=== PATIENT | male | born 1990 | race Asian ===

== ENCOUNTER 2018-02-22 12:12 | Emergency (ER) | payer OTHER ==
--- NOTE | 2018-02-22 12:33 | EDPHY ---
H & P Time Seen by Provider: 02/22/18 12:31 HPI/ROS: CHIEF COMPLAINT: Nausea and rectal bleeding HISTORY OF PRESENT ILLNESS: 28-year-old male with a history of gastritis secondary to H pylori here with complaints of nausea but no abdominal pain associated with rectal bleeding for the last week. He has had no fever, vomiting, diarrhea. The without any denies any abdominal pain. He was treated with medication for H pylori 2 years ago in has not had any medications since. Denies any dark tarry stools. No history of GI bleed. He is not taking any NSAIDs. No history of hemorrhoids. He is not constipated. No history of Crohn 's or ulcerative colitis. REVIEW OF SYSTEMS: Constitutional: No fever, no chills. Eyes: No discharge. ENT: No sore throat. Cardiovascular: No chest pain, no palpitations. Respiratory: No cough, no shortness of breath. Gastrointestinal: No abdominal pain, no vomiting. Genitourinary: No hematuria. Musculoskeletal: No back pain. Skin: No rashes. Neurological: No headache. Smoking Status: Never smoked Physical Exam: General Appearance: Alert and no distress. Eyes: Pupils equal and round no injection. Respiratory: Chest is nontender, lungs are clear to auscultation. Cardiac: regular rate and rhythm. Gastrointestinal: Abdomen is soft and nontender, no masses, bowel sounds normal. Musculoskeletal: Neck is supple and nontender. Extremities have full range of motion and are nontender. Skin: No rashes or lesions. Rectal: Rectal fissure noted with small amount of bleeding. No hemorrhoids. Normal appearing pale brown stool. Constitutional: Initial Vital Signs Temperature (C) 36.6 C 02/22/18 12:17 Heart Rate 91 02/22/18 12:17 Respiratory Rate 16 02/22/18 12:17 Blood Pressure 116/79 02/22/18 12:17 O2 Sat (%) 95 02/22/18 12:17 O2 Delivery Mode Room Air Allergies/Adverse Reactions: No Known Allergies Allergy (Unverified 02/22/18 12:24) Home Medications: Medication Instructions Recorded Ondansetron Odt [Zofran Odt 4 mg 4 mg PO Q8 #12 tab 02/22/18 (*)] Medical Decision Making ED Course/Re-evaluation: 28-year-old male with a history of H pylori infection here with nausea and 1 week of bright red blood seen in the toilet moved the toilet paper. On exam he has a very small rectal fissure is likely the source of his bleeding. He will be prescribed topical steroids and will follow up with Gastroenterology next week. We discussed indications for return such as fever, abdominal pain or other worrisome symptoms. Differential Diagnosis: Bleeding gastric ulcer, rectal fissure, internal hemorrhoid, gastritis - Data Points Laboratory Results: Laboratory Results 02/22/18 13:10 02/22/18 13:10 02/22/18 02/22/18 13:10 13:10 WBC 4.02 10^3/uL 10^3/uL (3.80-9.50) RBC 5.49 10^6/uL 10^6/uL (4.40-6.38) Hgb 16.7 g/dL g/dL (13.7-17.5) Hct 49.9 % % (40.0-51.0) MCV 90.9 fL fL (81.5-99.8) MCH 30.4 pg pg (27.9-34.1) MCHC 33.5 g/dL g/dL (32.4-36.7) RDW 12.8 % % (11.5-15.2) Plt Count 217 10^3/uL 10^3/uL (150-400) MPV 9.8 fL fL (8.7-11.7) Neut % (Auto) 46.3 % % (39.3-74.2) Lymph % (Auto) 44.8 % % (15.0-45.0) Collin % (Auto) 8.0 % % (4.5-13.0) Eos % (Auto) 0.2 % L % (0.6-7.6) Baso % (Auto) 0.5 % % (0.3-1.7) Nucleat RBC Rel Count 0.0 % % (0.0-0.2) Absolute Neuts (auto) 1.86 10^3/uL 10^3/uL (1.70-6.50) Absolute Lymphs (auto) 1.80 10^3/uL 10^3/uL (1.00-3.00) Absolute Monos (auto) 0.32 10^3/uL 10^3/uL (0.30-0.80) Absolute Eos (auto) 0.01 10^3/uL L 10^3/uL (0.03-0.40) Absolute Basos (auto) 0.02 10^3/uL 10^3/uL (0.02-0.10) Absolute Nucleated RBC 0.00 10^3/uL 10^3/uL (0-0.01) Immature Gran % 0.2 % % (0.0-1.1) Immature Gran # 0.01 10^3/uL 10^3/uL (0.00-0.10) Sodium 143 mEq/L mEq/L (135-145) Potassium 4.1 mEq/L mEq/L (3.3-5.0) Chloride 102 mEq/L mEq/L (97-110) Carbon Dioxide 27 mEq/l mEq/l (22-31) Anion Gap 14 mEq/L mEq/L (6-14) BUN 13 mg/dL mg/dL (7-23) Creatinine 0.8 mg/dL mg/dL (0.7-1.3) Estimated GFR > 60 Glucose 86 mg/dL mg/dL (70-100) Calcium 9.8 mg/dL mg/dL (8.5-10.4) Total Bilirubin 0.8 mg/dL mg/dL (0.1-1.4) AST 25 IU/L IU/L (17-59) ALT 25 IU/L IU/L (21-72) Alkaline Phosphatase 56 IU/L IU/L (38-126) Total Protein 8.4 g/dL H g/dL (6.3-8.2) Albumin 4.9 g/dL g/dL (3.5-5.0) Lipase 90 IU/L IU/L (23-300) Medications Given: Discontinued Medications Ondansetron HCl (Zofran Odt) 4 mg PO ONCE ONE Stop: 02/22/18 13:06 Last Admin: 02/22/18 13:09 Dose: 4 mg Departure - Departure Disposition: Home, Routine, Self-Care Clinical Impression: Nausea Condition: Good Instructions: Rectal Bleeding (ED) Additional Instructions: The source of you're bleeding is likely a rectal fissure. This is a small cut near the anus. I would like to follow up with Gastroenterology next week for re -evaluation. If he have severe bleeding or pain or fever or other changes in her symptoms return to the ER. Referrals: NONE *PRIMARY CARE P,. [Primary Care Provider] - As per Instructions Fernando Middleton MD [Medical Doctor] - As per Instructions Prescriptions: Ondansetron Odt [Zofran Odt 4 mg (*)] 4 mg PO Q8 #12 tab
[2018-02-22] MEDS ORDERED: ONDANSETRON DISINTEGRATING 4 MG TAB PO ONE (13:05)
[2018-02-22 13:29] LABS: PLATELET COUNT 217 10^3/uL (150-400)
[2018-02-22 14:51] VITALS: BP 108/68
== END 2018-02-22 14:51 | disposition home or self-care (01) ==
LOC: EDSEX 12:12
DX: R11.0 Nausea (principal); K62.5 Hemorrhage of anus and rectum; K60.2 Anal fissure, unspecified; Z87.19 Personal history of other diseases of the digestive system